=== PATIENT | male | born 1975 | race Hispanic/Latino ===

== ENCOUNTER 2021-02-21 12:29 | Emergency (ER) | payer SELFPAY ==
[2021-02-21 14:03] LABS: Bilirubin Negative (Negative); Blood, Urine Negative (Negative); Clarity Clear (Clear); Glucose, Urine (Dipstick) 500 mg/dL (Negative); Ketone, Urine Negative (Negative); Leukocyte Trace (Negative); Nitrite Negative (Negative); Protein, Urine (Dipstick) Negative (Neg-Trace); Specific Gravity, Urine 1.015 (1.005-1.030); Urobilinogen 0.2 mg/dL (Less than 2); pH, Urine 6.5 (5.0-9.0)
[2021-02-21 14:08] LABS: Bacteria/HPF None Seen HPF (None Seen); RBC/HPF None Seen HPF (0-3); Squamous Epithelial 0-3 HPF (0-3); WBC/HPF 0-3 HPF (0-3)
[2021-02-21 14:09] LABS: Yeast-Budding 1+ HPF (None Seen); Yeast-Hyphae Rare HPF (None Seen)
[2021-02-24 22:08] LABS: Chlamydia by PCR Not Detected (NotDetected); GC by PCR Not Detected (NotDetected)
== END 2021-02-21 15:35 | disposition home or self-care (01) ==
LOC: MADERS 12:29
DX: B37.42 Candidal balanitis (principal); E11.9 Type 2 diabetes mellitus without complications; I10 Essential (primary) hypertension; Z79.4 Long term (current) use of insulin
CPT/HCPCS: 36416; 81003; 81015; 87491; 87591; 99283

== ENCOUNTER 2024-09-03 18:59 | Emergency (ER) | payer SELFPAY ==
[2024-09-03] MEDS ORDERED: Sodium Chloride 0.9% 1,000 ML ONE (19:37)
[2024-09-03] MEDS ORDERED: Ondansetron PF 4 MG/2 ML Vial ONE (19:37)
[2024-09-03 19:56] LABS: Band 5 % (5-11); Hematocrit 49.7 % (42.0-52.0); Hemoglobin 15.4 g/dL (14.0-18.0); Lymphocytes 7 % (21-51); MDiff Complete? YES; Macrocytosis SLIGHT = 6-15 cells (100X) (0-5/hpf); Mean Corpuscular Hemoglobin 35.2 pg (27.0-31.0); Mean Corpuscular Volume 113.5 fl (78.0-98.0); Mean Platelet Volume 8.4 fL (7.4-10.4); Monocytes 3 % (0-10); Neutrophil 85 % (42-75); Platelet Adequacy Comment Appears Adequate; Platelet Count 252 10x3/uL (130-400); RBC Distribution Width 13.2 % (11.5-14.5); Red Blood Cell (RBC) Count 4.38 mill/uL (4.70-6.10); White Blood Cell (WBC) Count 12.6 10x3/uL (4.8-10.8)
[2024-09-03 19:57] LABS: Base Excess-Venous -22.9 mmol/L (-2.0 to 3.0); CO2 Tension (PvCO2) 21.7 mmHg (42.0-51.0); Calcium, Ionized 1.05 mmol/L (1.15-1.33); Chloride 104 mmol/L (98-107); Hemoglobin - Calc 17.9 g/dL (14.0-18.0); Potassium 4.7 mmol/L (3.5-5.1); Sodium 125 mmol/L (138-145); T. Carbon Dioxide 6.7 mmol/L (22.0-28.0); vO2 Saturation-calc 56.3 % (60.0-85.0)
[2024-09-03 19:59] LABS: ALT (SGPT) 41 U/L (8-55); AST (SGOT) 30 U/L (5-34); Albumin 4.4 g/dL (3.5-5.0); Alkaline Phosphatase 111 U/L (40-110); BUN (Urea Nitrogen) 30 mg/dL (8.9-20.6); Bilirubin, Total 0.7 mg/dL (0.2-1.2); Calc. Creatinine Clearance 0 mL/min (70-130); Calcium 9.2 mg/dL (7.8-10.44); Chloride 94 mmol/L (98-107); Estimated GFR 28; Globulin 3.6 g/dL (2.4-3.5); Potassium 5.1 mmol/L (3.5-5.1); Sodium 136 mmol/L (136-145)
[2024-09-03 20:00] LABS: Carbon Dioxide Less than 8 mmol/L (22-29); Critical Call Chemistry ERS.JD @ 2000; Glucose 470 mg/dL (70-105)
[2024-09-03] MEDS ORDERED: INSULIN REGULAR IN 0.9 % NACL 100 ML ONE (20:16)
== END 2024-09-03 20:59 | disposition short-term general hospital (02) ==
LOC: MADERS 18:59
DX: N17.9 Acute kidney failure, unspecified (principal); E11.10 Type 2 diabetes mellitus with ketoacidosis without coma; I10 Essential (primary) hypertension; Z55.6 Problems related to health literacy; Z79.4 Long term (current) use of insulin; Z79.84 Long term (current) use of oral hypoglycemic drugs
CPT/HCPCS: 36416; 71045; 80053; 82010; 82330; 82435; 82803; 83605; 83690; 84132; 84295; 85014; 85025; 87040; 87149; 96361; 96365; 96375; J1815; J2405; J7030